=== PATIENT | female | born 1980 | race Caucasian/White ===

== ENCOUNTER 2022-06-30 16:07 | Emergency (ER) | payer MEDICAID ==
[2022-06-30] MEDS: Ondansetron 4 MG/2 ML SDV IVPUSH STA (16:31)
[2022-06-30] MEDS: Sodium Chloride 0.9% 1,000 ML IV ONE (16:31)
[2022-06-30] MEDS: Ketorolac 30 MG/ML SDV IVPUSH STA (16:32)
[2022-06-30] MEDS: HYDROmorphone 1 MG/ML Syringe IVPUSH ONE ×3 (17:18→18:21)
[2022-06-30] MEDS: HYDROmorphone 0.5 MG/0.5 ML Syringe IVPUSH ONE (17:19)
[2022-06-30] MEDS: Tamsulosin 0.4 MG Cap.ER PO SCH (19:30)
[2022-06-30] MEDS: Take Home: Acetaminophen/HYDROcodone 325-5 MG, 2 Tab Pack PO ONE (19:33)
== END 2022-06-30 19:45 | disposition home or self-care (01) ==
LOC: CC.ED 16:07
DX: N13.2 Hydronephrosis with renal and ureteral calculous obstruction (principal); F17.210 Nicotine dependence, cigarettes, uncomplicated; Z79.899 Other long term (current) drug therapy
CPT/HCPCS: 36415; 74018; 74176; 80053; 81001; 85025; 96361; 96374; 96375; 96376; 99284; 99284-25; A9270-GY; J1170; J1885; J2405; J7030